=== PATIENT | male | born 1965 | race Caucasian/White ===

== ENCOUNTER → 2022-08-23 | Outpatient (CLI) | payer OTHER ==
--- NOTE | 2022-08-23 11:24 | CA ---
Transthoracic Echo Report Name: Asad Matute Age: 57 Gender: M : 1965 Exam Date: 08/23/2022 08:35 Exam Location: [place] [facility] Ht (in): 68 Wt (lb): 240 Ordering Physician: Kalen Brody MD Attending/Referring Phys: [id number] Director Of Restaurants Mendy Turner, [facility] Procedure CPT: Indications: R94.31 Cardiac Hx: Technical Quality: Fair Contrast 1: Total Dose (mL): Contrast 2: Total Dose (mL): MEASUREMENTS (Male / Female) Normal Values 2D ECHO LV Diastolic Diameter PLAX 5.3 cm 4.2 - 5.9 / 3.9 - 5.3 cm LV Systolic Diameter PLAX 3.2 cm IVS Diastolic Thickness 1.1 cm 0.6 - 1.0 / 0.6 - 0.9 cm LVPW Diastolic Thickness 0.9 cm 0.6 - 1.0 / 0.6 - 0.9 cm LV Relative Wall Thickness 0.4 RV Internal Dim ED PLAX 3.1 cm LA Volume 44.3 cm??? 18 - 58 / 22 - 52 cm??? M-MODE Aortic Root Diameter MM 2.8 cm LA Systolic Diameter MM 4.1 cm LA Ao Ratio MM 1.5 AV Cusp Separation MM 1.7 cm DOPPLER AV Peak Velocity 128.9 cm/s AV Peak Gradient 6.6 mmHg AV Mean Velocity 99.6 cm/s AV Mean Gradient 4.3 mmHg AV Velocity Time Integral 26.9 cm LVOT Peak Velocity 92.7 cm/s LVOT Peak Gradient 3.4 mmHg LVOT Velocity Time Integral 20.2 cm MV Area PHT 2.8 cm??? Mitral E Point Velocity 78.8 cm/s Mitral A Point Velocity 71.7 cm/s Mitral E to A Ratio 1.1 MV Deceleration Time 275.1 ms MV E' Velocity 7.9 cm/s Mitral E to MV E' Ratio 10.0 TR Peak Velocity 173.4 cm/s TR Peak Gradient 12.0 mmHg Right Ventricular Systolic Press 17.0 mmHg FINDINGS Left Ventricle Mildly increased left ventricular wall thickness. Normal left ventricular systolic function with no obvious regional wall motion abnormalities. Left ventricular cavity size normal. Left ventricular ejection fraction is estimated at 55-60 %. Right Ventricle Normal right ventricular size and function. Right ventricular systolic pressure within normal limits. Right Atrium Normal right atrial size. Left Atrium Normal left atrial size. Mitral Valve Structurally normal mitral valve. No mitral stenosis, regurgitation or prolapse. Aortic Valve Trileaflet aortic valve. No aortic valve stenosis or regurgitation. Tricuspid Valve Structurally normal tricuspid valve. Trace to mild tricuspid regurgitation. Pulmonic Valve Structurally normal pulmonic valve. Trace pulmonic regurgitation. Pericardium No pericardial effusion. Aorta Normal size aortic root and proximal ascending aorta. CONCLUSIONS Normal biventricular systolic function Normal intracardiac valves Normal pulmonary artery systolic pressure No evidence of pericardial effusion Previewed by: Dr. Jem Cedillo MD (Electronically Signed) Final Date: 23 August 2022 11:24
--- NOTE | 2022-08-24 11:19 | CA ---
Stress Echo Report Asad Matute Age: 57 Gender: M : 1965 Exam Date: 08/23/2022 08:54 Exam Location: [place] [facility] Ht (in): 68 Wt (lb): 240 Ordering Physician: Kalen Brody MD Referring Physician: Ronn BUENROSTRO Cop Winder: INDRA Technologist Procedure CPT: Indication: R94.31 ICD-9 Codes: Rhythm: Patient History: CHEST PAIN, DIFFICULTY IN BREATHING, ELEVATED CHOLESTEROL LEVELS, FAMILY HX OF HEART DISEASE, FORMER SMOKER (1 PPD X 20 YEARS) Cardiac Medications: Medications in past 24 hours: Contrast: Stress Results Protocol: Yosvany Total dose(mL): Exercise Duration (min:sec): 7:[address] Depression (mm): Angina Score: Sauer Score: METS: 8.5 Resting HR: 71 Resting BP: 148 / 84 Peak HR: 147 Peak BP: 228 / 80 Max Predicted HR: 162 91 % Max Predicted HR Target HR: 138 Double Product: [id number] Stress Summary: BP Response: Reason for Termination: TARGET HR/MAX EXERTION Cardiac Symptoms: NO SYMPTOMS ECG Analysis Resting ECG: Stress ECG: Arrhythmia: Echo Analysis Resting Echo: Peak Echo Analysis: MEASUREMENTS (Male/Female) Normal Values CONCLUSIONS Excellent exercise tolerance Normal EKG and echo in response to exercise Dr. Jem Cedillo MD (Electronically Signed) Final Date: 24 August 2022 11:18
== END | disposition home or self-care (01) ==
LOC: RADECHMAIN 07:37
PROVIDERS: ATTEND Family Medicine
DX: R94.31 Abnormal electrocardiogram [ECG] [EKG] (principal); E78.00 Pure hypercholesterolemia, unspecified; Z87.891 Personal history of nicotine dependence
CPT/HCPCS: 93306; 93351

== ENCOUNTER → 2023-06-14 | Outpatient (CLI) | payer OTHER ==
--- NOTE | 2023-06-14 15:43 | XR ---
EXAMINATION TYPE: XR chest 2V DATE OF EXAM: 06/14/2023 COMPARISON: None HISTORY: Cough and congestion since yesterday TECHNIQUE: Frontal and lateral views of the chest are obtained. FINDINGS: There is no focal air space opacity, pleural effusion, or pneumothorax seen. The cardiac silhouette size is within normal limits. The osseous structures are intact. IMPRESSION: No acute pulmonary infiltrate.
== END | disposition home or self-care (01) ==
LOC: RADXRMAIN 15:19
PROVIDERS: ATTEND Family Medicine
DX: J45.21 Mild intermittent asthma with (acute) exacerbation (principal)
CPT/HCPCS: 71046

== ENCOUNTER 2023-09-07 17:17 | Emergency (ER) | payer OTHER ==
[2023-09-07 17:40] VITALS: TEMP 98.2
--- NOTE | 2023-09-07 18:10 | ED ---
General Adult HPI - General Chief complaint: Extremity Injury, Upper Stated complaint: left arm pain Time Seen by Provider: 09/07/23 17:49 Source: patient, RN notes reviewed, old records reviewed Mode of arrival: ambulatory Limitations: no limitations - History of Present Illness Initial comments: Patient is a 58-year-old male who presents emergency department complaining of left-sided shoulder and arm pain. States that it began yesterday. Is a side sleeper. No obvious trauma. Denies any chest pain associated with it. States it is worse with any movement of his left shoulder. Has extreme pain when he tries to lift his shoulder anywhere above patient 90 degrees. States the pain radiates down his triceps muscle into his left elbow. Worse with movement. No sensory deficits. States it is somewhat worse also when sitting in certain positions. Also worse when lying down in certain positions. Worse with certain movements of his neck. Denies any chest pain, shortness of breath, abdominal pain, nausea, vomiting. Patient did have some muscle strain of his left lower extremity a few weeks ago and was treated with prednisone. That is since mostly resolved. Denies any other acute complaints at this time. Denies any headac hes, blurry vision. Presents for further evaluation. Pain is atraumatic. Pain is worse with movements. Patient is right-handed.When asked, patient states the primary pain seems to be generalized in the left shoulder and in the left tricep muscle. - Related Data Home Medications Medication Instructions Recorded Confirmed Budesonide/Formoterol Fumarate 2 puff INHALATION RT-BID 09/07/23 09/07/23 [Symbicort 160-4.5 Mcg Inhaler] Calcium Carbonate [Calcium] 600 mg PO DAILY 09/07/23 09/07/23 Levalbuterol Hfa Inhaler [Xopenex 2 puff INHALATION RT-Q6H PRN 09/07/23 09/07/23 Hfa Inhaler] Levothyroxine Sodium [Tirosint] 175 mcg PO DAILY 09/07/23 09/07/23 Loratadine [Claritin] 10 mg PO DAILY 09/07/23 09/07/23 Montelukast [Singulair] 10 mg PO HS 09/07/23 09/07/23 Sildenafil Citrate [Viagra] 100 mg PO DAILY PRN 03/30/24 03/30/24 Simvastatin [Zocor] 20 mg PO HS 09/07/23 09/07/23 Previous Rx's Medication Instructions Recorded Cyclobenzaprine [Flexeril] 5 mg PO TID PRN 7 Days #21 tablet 09/07/23 Allergies Allergy/AdvReac Type Severity Reaction Status Date / Time Penicillins Allergy Unknown Verified 09/07/23 19:50 Childhood Review of Systems ROS Statement: Those systems with pertinent positive or pertinent negative responses have been documented in the HPI. Review of Systems: CONST: Denies fever EYES: Denies blurry vision ENT: Denies nasal congestion C/V: Denies Chest pain RESP: Denies shortness of breath GI: Denies abdominal pain : Denies dysuria SKIN: Denies rash. MSK: Endorses left shoulder, arm pain NEURO: Denies headache ROS Other: All systems not noted in ROS Statement are negative. Past Medical History Past Medical History: Asthma, Hyperlipidemia, Thyroid Disorder Additional Past Medical History / Comment(s): CPAP History of Any Multi-Drug Resistant Organisms: None Reported Past Surgical History: Hernia Repair Past Psychological History: No Psychological Hx Reported Smoking Status: Never smoker Past Alcohol Use History: Occasional Past Drug Use History: None Reported General Exam - General Exam Comments Initial Comments: General: Appears in mild to moderate distress secondary to left shoulder and arm pain. HEAD: Normal with no signs of head trauma. EYES: PERRLA, EOMI, conjunctiva normal, no discharge. ENT: Hearing grossly intact, normal oropharynx. RESPIRATORY: Clear breath sounds bilaterally. No wheezes, rales, or rhonchi. C/V: Regular rate and rhythm. S1 and S2 auscultated, no edema, peripheral pulses 2+ and intact throughout ABD: Abd is soft, nontender, nondistended EXT: No obvious deformity. Reduced range of motion of the left shoulder secondary to pain. This includes active as well as passive range of motion of the left shoulder. Normal range of motion of the left elbow but it does provoke the pain in the left shoulder. Movement of the neck also mildly provokes the pain in the left shoulder. Seems to be musculoskeletal in nature. No specific movement of the shoulder is worse in terms of pain over others. Neurovascular intact throughout the left upper extremity. SKIN: No rashes or lesions observed on exposed skin. NEURO: Alert and oriented x 4. Cranial nerves II-XII intact. No focal sensory or strength deficits. Limitations: no limitations Course Vital Signs 09/07/23 09/07/23 09/07/23 17:19 19:23 20:25 Temperature 98.2 F 98.2 F Pulse Rate 93 89 67 Respiratory 20 18 18 Rate Blood Pressure 163/80 148/90 122/60 O2 Sat by Pulse 99 97 100 Oximetry Medical Decision Making - Medical Decision Making Was pt. sent in by a medical professional or institution (, PA, DIGITAL EDITOR, urgent care, hospital, or custodial...) When possible be specific @ -No Did you speak to anyone other than the patient for history (EMS, parent, family, police, friend...)? What history was obtained from this source @ -No Did you review nursing and triage notes (agree or disagree)? Why? @ -I reviewed and agree with nursing and triage notes Were old charts reviewed (outside hosp., previous admission, EMS record, old EKG, old radiological studies, urgent care reports/EKG's, custodial records)? Report findings @ -Old charts reviewed Differential Diagnosis (chest pain, altered mental status, abdominal pain women, abdominal pain men, vaginal bleeding, weakness, fever, dyspnea, syncope, headache, dizziness, GI bleed, back pain, seizure, CVA, palpatations, mental health, musculoskeletal)? @ -Differential Musculoskeletal Muscular strain, contusion, ligament sprain, fracture, arthritis, septic arthritis, bursitis, cellulitis, muscle spasm, nerve compression, DVT, arterial occlusion, herpes zoster, electrolyte abnormality, tumor.... This is not meant to be in all inclusive list EKG interpreted by me (3pts min.). @ -As above X-rays interpreted by me (1pt min.). @ -Patient's x-ray is negative for any obvious fractures or injuries. CT interpreted by me (1pt min.). @ -CT C-spine shows degenerative changes. No obvious fracture or injury. U/S interpreted by me (1pt. min.). @ -None done What testing was considered but not performed or refused? (CT, X-rays, U/S, labs)? Why? @ -None What meds were considered but not given or refused? Why? @ -None Did you discuss the management of the patient with other professionals (professionals i.e. , GERONIMO, DIGITAL EDITOR, lab, RT, psych nurse, director of social media marketing, cosmetology teacher, teacher, special police officer, case filler)? Give summary @ -No Was smoking cessation discussed for >3mins.? @ -No Was critical care preformed (if so, how long)? @ -No Were there social determinants of health that impacted care today? How? (Homelessness, low income, unemployed, alcoholism, drug addiction, transportation, low edu. Level, literacy, decrease access to med. care, fdc, rehab)? @ -No Was there de-escalation of care discussed even if they declined (Discuss DNR or withdrawal of care, Hospice)? DNR status @ -No What co-morbidities impacted this encounter? (DM, HTN, Smoking, COPD, CAD, Cancer, CVA, ARF, Chemo, Hep., AIDS, mental health diagnosis, sleep apnea, morbid obesity)? @ -None Was patient admitted / discharged? Hospital course, mention meds given and route, prescriptions, significant lab abnormalities, going to OR and other pertinent info. @ -Based on the patient's presentation and physical exam, patient appears to be having musculoskeletal left shoulder pain. Does not seem ACS related however patient did have an episode of chest pain yesterday that self resolved. Therefore we will obtain single troponin as well as EKG in addition to basic labs and imaging of the left arm and neck. Patient was in agreement this plan. He will be symptomatically treated with morphine and Toradol. Will be given a 1 L fluid bolus. Patient was in agreement this plan. I discussed with the patient, and both agree this is likely musculoskeletal however it is atraumatic. Patient's imaging unremarkable. EKG shows no signs of acute ischemia. Patient's laboratory studies unremarkable including undetectable troponin. At this time, I discussed results with the patient. I believe it is likely musculoskeletal pain, possible radiculopathy causing his shoulder pain. Could be a rotator cuff involvement as well. Recommended follow-up with orthopedics which he will be provided with. Patient was in agreement this plan. He will be discharged home with a prescription for Flexeril as well as a starter pack of Tylenol 3's. I will provide the patient with a prescription for Flexeril, starter pack of Tylenol 3. I instructed the patient to follow up with their PCP in the next 1-3 days. I provided contact information for follow up with orthopedic surgery. I explained that the patient should return to the emergency department if they experience any worsening symptoms. Strict return precautions were discussed with the patient. The patient expressed understanding of these instructions. I answered all questions that the patient had. The patient was discharged home in good condition with their prescriptions and follow up information. Undiagnosed new problem with uncertain prognosis? @ -No Drug Therapy requiring intensive monitoring for toxicity (Heparin, Nitro, Insulin, Cardizem)? @ -No Were any procedures done? @ -No Diagnosis/symptom? @ -Left arm pain, rotator cuff injury, cervical radiculopathy, left shoulder sprain Acute, or Chronic, or Acute on Chronic? @ -Acute Uncomplicated (without systemic symptoms) or Complicated (systemic symptoms)? @ -Complicated Side effects of treatment? @ -None Exacerbation, Progression, or Severe Exacerbation] @ -No Poses a threat to life or bodily function? @ -Unlikely - Lab Data Result diagrams: 09/07/23 19:04 09/07/23 19:04 Lab Results 09/07/23 09/07/23 09/07/23 Range/Units 19:04 19:04 19:04 WBC 12.5 H (3.8-10.6) k/uL RBC 5.42 (4.30-5.90) m/uL Hgb 15.5 (13.0-17.5) gm/dL Hct 49.0 (39.0-53.0) % MCV 90.4 (80.0-100.0) fL MCH 28.6 (25.0-35.0) pg MCHC 31.6 (31.0-37.0) g/dL RDW 13.7 (11.5-15.5) % Plt Count 203 (150-450) k/uL MPV 8.4 Neutrophils % 75 % Lymphocytes % 12 % Monocytes % 7 % Eosinophils % 4 % Basophils % 1 % Neutrophils # 9.3 H (1.3-7.7) k/uL Lymphocytes # 1.5 (1.0-4.8) k/uL Monocytes # 0.9 (0-1.0) k/uL Eosinophils # 0.4 (0-0.7) k/uL Basophils # 0.1 (0-0.2) k/uL PT 9.8 L (10.0-12.5) sec INR 0.9 (<1.2) APTT 24.0 (22.0-30.0) sec Sodium 139 (137-145) mmol/L Potassium 3.9 (3.5-5.1) mmol/L Chloride 105 (98-107) mmol/L Carbon Dioxide 24 (22-30) mmol/L Anion Gap 10 mmol/L BUN 17 (9-20) mg/dL Creatinine 0.68 (0.66-1.25) mg/dL Est GFR (CKD-EPI)AfAm >90 (>60 ml/min/1.73 sqM) Est GFR (CKD-EPI)NonAf >90 (>60 ml/min/1.73 sqM) Glucose 118 H (74-99) mg/dL Plasma Lactic Acid Dinesh (0.7-2.0) mmol/L Calcium 9.7 (8.4-10.2) mg/dL Magnesium 2.1 (1.6-2.3) mg/dL Total Bilirubin 0.6 (0.2-1.3) mg/dL AST 19 (17-59) U/L ALT 30 (4-49) U/L Alkaline Phosphatase 86 (38-126) U/L Troponin I (0.000-0.034) ng/mL Total Protein 7.4 (6.3-8.2) g/dL Albumin 4.2 (3.5-5.0) g/dL 09/07/23 09/07/23 Range/Units 19:04 19:04 WBC (3.8-10.6) k/uL RBC (4.30-5.90) m/uL Hgb (13.0-17.5) gm/dL Hct (39.0-53.0) % MCV (80.0-100.0) fL MCH (25.0-35.0) pg MCHC (31.0-37.0) g/dL RDW (11.5-15.5) % Plt Count (150-450) k/uL MPV Neutrophils % % Lymphocytes % % Monocytes % % Eosinophils % % Basophils % % Neutrophils # (1.3-7.7) k/uL Lymphocytes # (1.0-4.8) k/uL Monocytes # (0-1.0) k/uL Eosinophils # (0-0.7) k/uL Basophils # (0-0.2) k/uL PT (10.0-12.5) sec INR (<1.2) APTT (22.0-30.0) sec Sodium (137-145) mmol/L Potassium (3.5-5.1) mmol/L Chloride (98-107) mmol/L Carbon Dioxide (22-30) mmol/L Anion Gap mmol/L BUN (9-20) mg/dL Creatinine (0.66-1.25) mg/dL Est GFR (CKD-EPI)AfAm (>60 ml/min/1.73 sqM) Est GFR (CKD-EPI)NonAf (>60 ml/min/1.73 sqM) Glucose (74-99) mg/dL Plasma Lactic Acid Dinesh 1.8 (0.7-2.0) mmol/L Calcium (8.4-10.2) mg/dL Magnesium (1.6-2.3) mg/dL Total Bilirubin (0.2-1.3) mg/dL AST (17-59) U/L ALT (4-49) U/L Alkaline Phosphatase (38-126) U/L Troponin I <0.012 (0.000-0.034) ng/mL Total Protein (6.3-8.2) g/dL Albumin (3.5-5.0) g/dL - EKG Data -: EKG Interpreted by Me EKG Comments: 12-lead Electrocardiogram Interpretation Note EKG was reviewed and interpreted by myself. 12-lead ECG performed at 1848 is interpreted by me as revealing normal sinus rhythm at a rate of 90 beats per minute. [place] is normal. MI interval is 120 ms, QRS durations 108 ms, QTc is 414 ms.. There were no ST or T wave abnormalities to suggest myocardial ischemia or injury. R wave progression across the precordium was satisfactory. By my interpretation this EKG is non-diagnostic for acute ischemia. Disposition Clinical Impression: Left arm pain, Rotator cuff injury, Cervical radiculopathy, Sprain of shoulder, left Disposition: HOME SELF-CARE Condition: Good Instructions (If sedation given, give patient instructions): Shoulder Sprain (ED) Prescriptions: Cyclobenzaprine [Flexeril] 5 mg PO TID PRN 7 Days #21 tablet PRN Reason: Pain Is patient prescribed a controlled substance at d/c from ED?: No Referrals: Kalen Brody MD [Primary Care Provider] - 1-2 days Richie Montanez MD [Medical Doctor] - 1-2 days Time of Disposition: 19:48
--- NOTE | 2023-09-07 18:43 | CT ---
EXAMINATION TYPE: CT cervical spine wo con DATE OF EXAM: 09/07/2023 COMPARISON: None HISTORY: Left arm pain, radiculopathy. CT DLP: 365.7 mGycm CONTRAST: None CT of the cervical spine is performed in the axial plane at 2 mm thick sections. Reconstructed image s in the coronal, and sagittal plane are reviewed on the computer. No acute fractures are evident. Vertebral body alignment is normal. Disc heights are preserved. Some mild narrowing at C5-6 is present. Vertebral body heights are preserved. Posterior endplate spurring is present C5-6 there is greater in the right paracentral region. No AP s denisse stenosis is present. No neural foraminal stenosis is evident. IMPRESSION: 1. Mild degenerative disc changes C5-C6. 2. C5-6 Posterior endplate spurring with calcification within the posterior spinal ligament. Moderate right paracentral thecal sac compression is present without stenosis at the C5-6 level. 3. No acute osseous abnormality cervical spine
--- NOTE | 2023-09-07 19:00 | XR ---
EXAMINATION TYPE: XR shoulder complete LT DATE OF EXAM: 09/07/2023 COMPARISON: NONE HISTORY: Pain TECHNIQUE: Shoulder examined in 3 projections. FINDINGS: The humeral head articulates with the glenoid. The acromio-clavicular junction is normal. No acute fractures or dislocations are evident. A follow up study can be performed 7-10 days from acute trauma for continued pain. MRI can be perfor med if soft tissue evaluation would be of benefit. IMPRESSION: 1. No acute osseous left shoulder abnormality.
--- NOTE | 2023-09-07 19:03 | XR ---
EXAMINATION TYPE: XR humerus LT DATE OF EXAM: 09/07/2023 COMPARISON: None HISTORY: Trauma, pain TECHNIQUE: 4 view left humerus FINDINGS: No acute fracture or dislocation is evident. Joint spaces appear preserved. Soft tissues ar e normal. Follow up exams can be performed 7-10 days from acute trauma for continued pain IMPRESSION: 1. No acute osseous abnormality left humerus
[2023-09-07] MEDS: KETOROLAC 15 MG/ML 1 ML VIAL IVP STA (19:04)
--- NOTE | 2023-09-07 19:05 | XR ---
EXAMINATION TYPE: XR elbow limited LT DATE OF EXAM: 09/07/2023 COMPARISON: None HISTORY: Pain TECHNIQUE: 2 view left elbow FINDINGS: Anterior fat pad is normal. No elevation of posterior fat pad is evident. Radius aligns nor mary jane with the humerus. No acute fractures or dislocations evident. Follow-up exams can be performed 7-10 days from acute trauma for continued pain IMPRESSION: 1. Normal 2 view left elbow.
[2023-09-07] MEDS: MORPHINE SULFATE 4 MG/ML SYRINGE IVP STA (19:06)
--- NOTE | 2023-09-07 19:06 | XR ---
EXAMINATION TYPE: XR chest 2V DATE OF EXAM: 09/07/2023 COMPARISON: 06/14/2023 INDICATION: Left arm pain TECHNIQUE: Frontal and lateral views of the chest are obtained. FINDINGS: The heart size is normal. The pulmonary vasculature is normal. The lungs are clear. IMPRESSION: 1. No acute pulmonary process.
[2023-09-07] MEDS: SODIUM CHLORIDE 0.9% 1,000 ML IV STA (19:09)
[2023-09-07 19:14] LABS: Basophils # (A) 0.1 k/uL (0-0.2); Basophils % (A) 1 %; Eosinophils # (A) 0.4 k/uL (0-0.7); Eosinophils % (A) 4 %; HGB 15.5 gm/dL (13.0-17.5); Lymphocytes # (A) 1.5 k/uL (1.0-4.8); Lymphocytes % (A) 12 %; MCH 28.6 pg (25.0-35.0); MCHC 31.6 g/dL (31.0-37.0); MCV 90.4 fL (80.0-100.0); Mean Platelet Volume 8.4; Monocytes # (A) 0.9 k/uL (0-1.0); Monocytes % (A) 7 %; Neutrophils # (A) 9.3 k/uL (1.3-7.7); Neutrophils % (A) 75 %; Platelet Count 203 k/uL (150-450); RBC 5.42 m/uL (4.30-5.90); RDW 13.7 % (11.5-15.5); WBC 12.5 k/uL (3.8-10.6)
[2023-09-07 19:24] LABS: ALT 30 U/L (4-49); AST 19 U/L (17-59); African American GFR (CKD) >90 (>60 ml/min/1.73 sqM); Albumin 4.2 g/dL (3.5-5.0); Alkaline Phosphatase 86 U/L (38-126); Anion Gap 10 mmol/L; Blood Urea Nitrogen 17 mg/dL (9-20); Calcium 9.7 mg/dL (8.4-10.2); Carbon Dioxide 24 mmol/L (22-30); Chloride 105 mmol/L (98-107); Glucose 118 mg/dL (74-99); INR 0.9 (<1.2); Magnesium 2.1 mg/dL (1.6-2.3); Non-African American GFR(CKD) >90 (>60 ml/min/1.73 sqM); Potassium 3.9 mmol/L (3.5-5.1); Prothrombin Time 9.8 sec (10.0-12.5); Sodium 139 mmol/L (137-145); Total Bilirubin 0.6 mg/dL (0.2-1.3); Total Protein 7.4 g/dL (6.3-8.2)
[2023-09-07 19:53] VITALS: RESP 18
[2023-09-07] MEDS: ACET/COD 300 MG/30 MG STARTER PACK 6 TAB BTL PO STA (19:59)
[2023-09-07 20:27] VITALS: BP 122/60; PULSE 67
== END 2023-09-07 20:25 | disposition home or self-care (01) ==
LOC: EC 17:17
DX: S46.002A Unspecified injury of muscle(s) and tendon(s) of the rotator cuff of left shoulder, initial encounter (principal); Z88.0 Allergy status to penicillin; X58.XXXA Exposure to other specified factors, initial encounter
CPT/HCPCS: 36415; 80053; 83605; 83735; 84484; 85025; 85610; 85730; 73030; 73060; 73070; 71046; 72125; 99284; 96374; 96375; 96361; J2270; J1885

== ENCOUNTER 2023-11-27 10:23 | Day surgery (SDC) | payer OTHER ==
[2023-11-27] MEDS ORDERED: LIDOCAINE 1% (10MG/ML) FOR IV START INTRADERMA PRN (10:36)
[2023-11-27 10:49] VITALS: TEMP 97.6
[2023-11-27 10:58] LABS: Glucose,Whole Blood 83 mg/dL (70-110)
[2023-11-27] MEDS: IV FLUID CONTINUATION 1,000 ML IV ONE ×2 (11:03→11:05)
[2023-11-27] MEDS: LACTATED RINGERS 1,000 ML IV SCH (11:03)
[2023-11-27] MEDS ORDERED: PROPOFOL 10 MG/ML 20 ML VIAL IV ONE (11:12)
--- NOTE | 2023-11-27 11:32 | P.PCN ---
Date of Procedure: 11/27/23 Procedure(s) Performed: BRIEF HISTORY: Patient is a 58-year-old pleasant white male scheduled for an elective colonoscopy as a part of screening for colon cancer and history of colon polyp PROCEDURE PERFORMED: Colonoscopy snare polypectomy. PREOPERATIVE DIAGNOSIS: Screening for colon cancer/history of colon. IV sedation per Anesthesia. PROCEDURE: After informed consent was obtained, the patient, was brought into the endoscopy unit. IV sedation was administered by Anesthesia under continuous monitoring. Digital rectal examination was normal. Initially the Olympus CF-160 flexible video colonoscope was then inserted in the rectum, gradually advanced into the cecum without any difficulty. Careful examination was performed as the scope was gradually being withdrawn. Ileocecal valve and the appendiceal orifice were visualized and appeared normal. Prep was excellent. Mucosa of the cecum, ascending colon, normal. In the proximal transverse colon there was a 5 mm polyp that was removed by cold snare polypectomy. Rest of the transverse colon, descending colon, were normal. In the sigmoid colon there was a 5 mm polyp removed by cold snare polypectomy. In the proximal rectum there was a 3 mm polyp removed by snare polypectomy. Scattered sigmoid diverticulosis seen. Rest of the sigmoid colon, and rectum appeared normal. Retroflexion was performed in the rectum and no lesions were seen. The patient tolerated the procedure well. IMPRESSION: 5 mm proximal transverse colon s/p polypectomy 4 mm sigmoid colon polyp status post polypectomy 3 mm rectal polyp status post polypectomy Scattered sigmoid diverticula RECOMMENDATIONS: Findings of this examination were discussed with the patient as well as her family. He was advised to follow-up with the biopsy results. If the biopsy reveals adenoma he can have repeat colonoscopy 5 years.
[2023-11-27 11:37] VITALS: RESP 16
[2023-11-27 11:58] VITALS: BP 154/81; PULSE 84
== END 2023-11-27 12:10 | disposition home or self-care (01) ==
LOC: ORWHC2ENDO 10:23
PROVIDERS: ATTEND Internal Medicine Gastroenterology
DX: Z12.11 Encounter for screening for malignant neoplasm of colon (principal); D12.3 Benign neoplasm of transverse colon; D12.5 Benign neoplasm of sigmoid colon; K57.30 Diverticulosis of large intestine without perforation or abscess without bleeding; D12.8 Benign neoplasm of rectum; E78.5 Hyperlipidemia, unspecified; J45.909 Unspecified asthma, uncomplicated; G47.33 Obstructive sleep apnea (adult) (pediatric); E07.9 Disorder of thyroid, unspecified; Z79.890 Hormone replacement therapy; Z79.51 Long term (current) use of inhaled steroids; Z79.899 Other long term (current) drug therapy; Z88.0 Allergy status to penicillin; Z98.890 Other specified postprocedural states
CPT/HCPCS: 88305; 45385; J2704